=== PATIENT | male | born 1955 | race Caucasian/White ===

== ENCOUNTER 2020-12-08 22:42 | Emergency (ER) | payer OTHER ==
[~2020-12-08] VITALS: Ht 175.3 cm; Wt 79.4 kg
--- NOTE | 2020-12-08 22:58 | NUR ---
pt bibself c/o cough x3 weeks. Pt aaox4 breathing evenly and unlabored. Per pt, every time he coughs, his chest hurts. pt attached to monitor and pox. MD at bedside. Pt given blanket and call light within reach
--- NOTE | 2020-12-08 23:00 | NUR ---
xray at bedside
[2020-12-09] MEDS ORDERED: IBUP-1957 PO (00:08)
[2020-12-09] MEDS ORDERED: BENZ-13 PO (00:08)
[2020-12-09] MEDS ORDERED: BENZONATATE 100 MG CAPSULE PO PRN (00:30)
--- NOTE | 2020-12-09 00:40 | NUR ---
non admin corine noland from [facility] med. not avail in the ED
[2020-12-09] MEDS ORDERED: BENZONATATE 100 MG CAPSULE PO ONE (00:44)
[2020-12-09 00:54] VITALS: BP 112/68
== END 2020-12-09 00:44 | disposition home or self-care (01) ==
LOC: ER 22:48
DX: R05.9 Cough, unspecified (principal); R07.89 Other chest pain; I10 Essential (primary) hypertension; E11.9 Type 2 diabetes mellitus without complications; Z60.2 Problems related to living alone; Z79.899 Other long term (current) drug therapy
CPT/HCPCS: 71045-TC

== ENCOUNTER 2022-10-12 08:35 | Emergency (ER) | payer OTHER ==
[~2022-10-12] VITALS: Ht 167.6 cm; Wt 95.3 kg
[~2022-10-12 08:35] MED LIST: BENZ-13 PO; IBUP-1957 PO
[2022-10-12] MEDS ORDERED: FAMOTIDINE/PF INJ 20 MG/2 ML VIAL IV ONE ×2 (09:00→09:22)
[2022-10-12] MEDS ORDERED: IV NS 0.9% 1,000 ML BAG IV ONE (09:00)
[2022-10-12] MEDS ORDERED: ONDANSETRON HCL/PF 4 MG/2 ML VIAL IVP ONE (09:00)
[2022-10-12] MEDS ORDERED: ONDANSETRON HCL/PF 4 MG/2 ML VIAL ONE (09:22)
[2022-10-12 09:26] LABS: BASOPHILS % (AUTO) 0.1 % (0.0-2.0); EOSINOPHILS # (AUTO) 0.1 K/uL (0.0-0.7); EOSINOPHILS % (AUTO) 0.4 % (0.0-6.0); HEMATOCRIT 46 % (39-51); HEMOGLOBIN 15.4 g/dL (13.5-17.5); LYMPHOCYTES # (AUTO) 0.4 K/uL (0.8-4.8); LYMPHOCYTES % (AUTO) 2.7 % (20.0-44.0); MEAN CORPUSCULAR HEMOGLOBIN 29 PG (26.0-33.0); MEAN CORPUSCULAR HGB CONC 33 g/dl (31.0-36.0); MEAN CORPUSCULAR VOLUME 86 fL (80-96); MONOCYTES % (AUTO) 6.8 % (2.0-12.0); NEUTROPHILS # (AUTO) 13.8 K/uL (1.8-8.9); PLATELET COUNT (AUTO) 203 K/uL (150-450); RED BLOOD CELL COUNT(AUTO) 5.39 MIL/uL (4.5-6.0); RED CELL DISTRIBUTION WIDTH 14.5 % (11.5-15.0); WHITE BLOOD COUNT (AUTO) 15.3 K/uL (4.3-11.0)
[2022-10-12 09:40] LABS: CALCIUM, SERUM 9.1 mg/dL (8.5-10.1); CARBON DIOXIDE 26 mmol/L (21-32); CHLORIDE 104 mmol/L (98-107); CREATININE 1.1 mg/dL (0.6-1.3); GLUCOSE 138 mg/dL (74-106); POTASSIUM 3.5 mmol/L (3.5-5.1); SODIUM SERUM 140 mmol/L (136-145); UREA NITROGEN, BLOOD 16 mg/dL (7-18)
[2022-10-12 09:44] LABS: ALANINE AMINOTRANSFERASE 38 U/L (12-78); ALBUMIN 3.8 g/dL (3.4-5.0); ALKALINE PHOSPHATASE 73 U/L (46-116); ASPARTATE AMINOTRANSFERASE 23 U/L (15-37); BILIRUBIN,DIRECT 0.2 mg/dL (0.0-0.2); BILIRUBIN,TOTAL 0.7 mg/dL (0.2-1.0); LIPASE 48 U/L (73-393); TOTAL PROTEIN, SERUM 7.3 g/dL (6.4-8.2)
[2022-10-12] MEDS ORDERED: ONDA4TAB5 PO (10:50)
[2022-10-12] MEDS ORDERED: IBUPROFEN 600 MG TABLET ONE (10:57)
[2022-10-12] MEDS ORDERED: IBUPROFEN 600 MG TABLET PO ONE (11:00)
[2022-10-12 11:23] VITALS: BP 116/66; TEMP 98.1; O2SAT 93
== END 2022-10-12 11:23 | disposition home or self-care (01) ==
LOC: ER 09:05
DX: R10.84 Generalized abdominal pain (principal); R11.10 Vomiting, unspecified; I10 Essential (primary) hypertension; E11.9 Type 2 diabetes mellitus without complications; Z60.2 Problems related to living alone
CPT/HCPCS: 99285; 74176; 96374; 71045; 96361; 96375; 93005; 85025; 80048; 83690; 80076; 36415; 84484; J3490; J2405; J7030